=== PATIENT | male | born 1935 | race Caucasian/White ===

== ENCOUNTER → 2016-12-26 | Outpatient (REF) | payer MEDICARE ==
[2016-12-26 19:34] LABS: BASO % 0.4 % (0.0-1.0); EOS # 0.3 K/mm3 (0.0-0.50); EOS % 2.9 % (0.0-3.0); LARGE UNSTAINED CELL # 0.1 K/mm3 (0.0-0.4); LARGE UNSTAINED CELL % 0.8 % (0.0-4.0); LYMPH # 1.6 K/mm3 (1.5-4.5); LYMPH % 15.6 % (24.0-44.0); MEAN CORPUSCULAR HGB CONC 30.7 g/dl (32.0-36.5); MONO # 0.6 K/mm3 (0.0-0.8); MONO % 6.5 % (0.0-5.0); NEUTROPHILS # 7.1 K/mm3 (1.8-7.7); NEUTROPHILS % 73.9 % (36.0-66.0); PLATELET COUNT, AUTOMATED 465 k/mm3 (150-450); RED CELL DISTRIBUTION WIDTH 13.3 % (11.5-14.5); WHITE BLOOD COUNT 9.5 K/mm3 (4.0-10.0)
[2016-12-26 19:58] LABS: ERYTHROCYTE SEDIMENTATION RATE 63 mm/hr (0-20)
[2016-12-26 20:16] LABS: ALBUMIN 2.7 GM/DL (3.2-5.2); ALBUMIN/GLOBULIN RATIO 0.87 (1.00-1.93); BILIRUBIN,TOTAL 0.2 MG/DL (0.2-1.0); CALCIUM LEVEL 8.4 MG/DL (8.8-10.2); CREATININE FOR GFR 1.83 MG/DL (0.70-1.30); GLOMERULAR FILTRATION RATE 38.2 (>42); POTASSIUM SERUM 4.6 MEQ/L (3.5-5.1); TOTAL PROTEIN 5.8 GM/DL (6.4-8.2)
== END ==
LOC: M LAB REF 16:38
PROVIDERS: ATTEND Internal Medicine Infectious Disease
DX: I35.8 Other nonrheumatic aortic valve disorders (principal); R78.81 Bacteremia; L08.9 Local infection of the skin and subcutaneous tissue, unspecified; Z79.2 Long term (current) use of antibiotics; A49.01 Methicillin susceptible Staphylococcus aureus infection, unspecified site

== ENCOUNTER → 2016-12-29 | Outpatient (REF) | payer MEDICARE | LOC: M LABDRAW1 11:35 | PROVIDERS: ATTEND Physician Assistant Medical | DX: E11.9 Type 2 diabetes mellitus without complications (principal); E78.5 Hyperlipidemia, unspecified; I10 Essential (primary) hypertension ==

== ENCOUNTER → 2017-01-08 | Outpatient (REF) | payer MEDICARE ==
[2017-01-08 16:51] LABS: ALBUMIN 2.7 GM/DL (3.2-5.2); ALBUMIN/GLOBULIN RATIO 0.93 (1.00-1.93); BILIRUBIN,TOTAL 0.2 MG/DL (0.2-1.0); CREATININE FOR GFR 2.05 MG/DL (0.70-1.30); GLOMERULAR FILTRATION RATE 33.5 (>42); POTASSIUM SERUM 3.3 MEQ/L (3.5-5.1); TOTAL PROTEIN 5.6 GM/DL (6.4-8.2)
[2017-01-08 16:57] LABS: BASO % 0.2 % (0.0-1.0); EOS # 0.4 K/mm3 (0.0-0.50); EOS % 4.7 % (0.0-3.0); LARGE UNSTAINED CELL # 0.1 K/mm3 (0.0-0.4); LARGE UNSTAINED CELL % 1.1 % (0.0-4.0); LYMPH % 12.3 % (24.0-44.0); MEAN CORPUSCULAR HEMOGLOBIN 30.6 pg (27.0-33.0); MEAN CORPUSCULAR HGB CONC 31.3 g/dl (32.0-36.5); MEAN CORPUSCULAR VOLUME 97.7 fl (80.0-96.0); MONO # 0.6 K/mm3 (0.0-0.8); MONO % 8.3 % (0.0-5.0); NEUTROPHILS # 5.7 K/mm3 (1.8-7.7); NEUTROPHILS % 73.6 % (36.0-66.0); PLATELET COUNT, AUTOMATED 227 k/mm3 (150-450); RED CELL DISTRIBUTION WIDTH 13.5 % (11.5-14.5); WHITE BLOOD COUNT 7.8 K/mm3 (4.0-10.0)
[2017-01-08 17:43] LABS: ERYTHROCYTE SEDIMENTATION RATE 50 mm/hr (0-20)
== END ==
LOC: M LAB REF 16:23
PROVIDERS: ATTEND Internal Medicine Infectious Disease
DX: Z79.2 Long term (current) use of antibiotics (principal); A49.01 Methicillin susceptible Staphylococcus aureus infection, unspecified site

== ENCOUNTER → 2017-01-09 | Outpatient (REF) | payer MEDICARE | LOC: M LAB REF 14:19 | PROVIDERS: ATTEND Nurse Practitioner | DX: N18.4 Chronic kidney disease, stage 4 (severe) (principal); R79.89 Other specified abnormal findings of blood chemistry; Z79.2 Long term (current) use of antibiotics ==

== ENCOUNTER → 2017-01-15 | Outpatient (REF) | payer MEDICARE ==
[2017-01-15 18:01] LABS: BASO % 0.4 % (0.0-1.0); EOS # 0.4 K/mm3 (0.0-0.50); EOS % 4.5 % (0.0-3.0); LARGE UNSTAINED CELL # 0.2 K/mm3 (0.0-0.4); LARGE UNSTAINED CELL % 2.1 % (0.0-4.0); LYMPH # 1.5 K/mm3 (1.5-4.5); LYMPH % 17.5 % (24.0-44.0); MEAN CORPUSCULAR HEMOGLOBIN 30.5 pg (27.0-33.0); MEAN CORPUSCULAR HGB CONC 31.1 g/dl (32.0-36.5); MEAN CORPUSCULAR VOLUME 98.1 fl (80.0-96.0); MONO # 0.4 K/mm3 (0.0-0.8); MONO % 4.7 % (0.0-5.0); NEUTROPHILS # 6.2 K/mm3 (1.8-7.7); NEUTROPHILS % 70.7 % (36.0-66.0); PLATELET COUNT, AUTOMATED 219 k/mm3 (150-450); RED CELL DISTRIBUTION WIDTH 13.3 % (11.5-14.5); WHITE BLOOD COUNT 8.8 K/mm3 (4.0-10.0)
[2017-01-15 18:31] LABS: ALBUMIN 3.2 GM/DL (3.2-5.2); ALBUMIN/GLOBULIN RATIO 0.97 (1.00-1.93); BILIRUBIN,TOTAL 0.2 MG/DL (0.2-1.0); CALCIUM LEVEL 7.8 MG/DL (8.8-10.2); CREATININE FOR GFR 1.99 MG/DL (0.70-1.30); GLOMERULAR FILTRATION RATE 34.7 (>42); POTASSIUM SERUM 4.1 MEQ/L (3.5-5.1); TOTAL PROTEIN 6.5 GM/DL (6.4-8.2)
[2017-01-15 21:16] LABS: ERYTHROCYTE SEDIMENTATION RATE 37 mm/hr (0-20)
== END ==
LOC: M LAB REF 16:45
PROVIDERS: ATTEND Internal Medicine Infectious Disease
DX: A49.01 Methicillin susceptible Staphylococcus aureus infection, unspecified site (principal); R78.81 Bacteremia; Z79.2 Long term (current) use of antibiotics; L08.9 Local infection of the skin and subcutaneous tissue, unspecified; I35.8 Other nonrheumatic aortic valve disorders

== ENCOUNTER → 2017-01-22 | Outpatient (REF) | payer MEDICARE ==
[2017-01-22 19:05] LABS: ALBUMIN 3.2 GM/DL (3.2-5.2); ALBUMIN/GLOBULIN RATIO 1.07 (1.00-1.93); BILIRUBIN,TOTAL 0.2 MG/DL (0.2-1.0); CREATININE FOR GFR 1.98 MG/DL (0.70-1.30); GLOMERULAR FILTRATION RATE 34.9 (>42); TOTAL PROTEIN 6.2 GM/DL (6.4-8.2)
[2017-01-22 20:07] LABS: BASO % 0.7 % (0.0-1.0); EOS # 0.4 K/mm3 (0.0-0.50); EOS % 5.6 % (0.0-3.0); LARGE UNSTAINED CELL # 0.1 K/mm3 (0.0-0.4); LARGE UNSTAINED CELL % 1.2 % (0.0-4.0); LYMPH # 1.5 K/mm3 (1.5-4.5); LYMPH % 20.8 % (24.0-44.0); MEAN CORPUSCULAR HEMOGLOBIN 31.1 pg (27.0-33.0); MEAN CORPUSCULAR HGB CONC 32.2 g/dl (32.0-36.5); MEAN CORPUSCULAR VOLUME 96.6 fl (80.0-96.0); MONO # 0.5 K/mm3 (0.0-0.8); MONO % 7.6 % (0.0-5.0); NEUTROPHILS # 4.4 K/mm3 (1.8-7.7); NEUTROPHILS % 64.2 % (36.0-66.0); PLATELET COUNT, AUTOMATED 226 k/mm3 (150-450); RED CELL DISTRIBUTION WIDTH 13.3 % (11.5-14.5); WHITE BLOOD COUNT 6.9 K/mm3 (4.0-10.0)
[2017-01-22 21:49] LABS: ERYTHROCYTE SEDIMENTATION RATE 30 mm/hr (0-20)
== END ==
LOC: M LAB REF 16:31
PROVIDERS: ATTEND Internal Medicine Infectious Disease
DX: A41.01 Sepsis due to Methicillin susceptible Staphylococcus aureus (principal); I35.8 Other nonrheumatic aortic valve disorders; Z79.2 Long term (current) use of antibiotics; L08.9 Local infection of the skin and subcutaneous tissue, unspecified

== ENCOUNTER → 2017-01-26 | Outpatient (CLI) | payer MEDICARE ==
--- NOTE | 2017-01-26 20:12 | ECHO ---
DATE OF PROCEDURE: 01/26/2017 REFERRING PHYSICIAN: Shira De Souza MD PATIENT LOCATION: Outpatient DIAGNOSIS: Endocarditis. HEIGHT: 183 cm WEIGHT: 106 kg DIMENSIONS: IVS: 1.2 LV: 4.5 LVPW: 1.1 LA: 3.3 Aorta; 3.7 FINDINGS: The study is of difficult technical quality. Left ventricle is of normal size and systolic function with estimated ejection fraction (EF) approximately 60-65%. Borderline left ventricular hypertrophy (LVH) is noted. Right ventricle appears normal size, but it was poorly seen. Left atrium is at least mildly enlarged. Right atrium is probably normal but visualization was limited. Aortic valve is mildly sclerotic, but it is tricuspid and seems to have normal mobility. Mitral valve also appears to have mild degenerative abnormalities with thickening of anterior mitral leaflet. I do not appreciate any vegetation on either valve. Tricuspid and pulmonic valves were poorly visualized. No pericardial effusion is noted. Inferior vena cava was not seen. Aortic root is borderline enlarged. Aortic arch appears normal. Abdominal aorta was not visualized. Doppler interrogation reveals no aortic stenosis and trace insufficiency. There is mild mitral insufficiency. There is trace tricuspid insufficiency. Quality of tricuspid regurgitation (TR) jet though was not good and consequently I cannot reliably estimate pulmonary artery pressure. Pulmonic valve is also functionally competent based on limited views. Mitral inflow pattern and tissue Doppler imaging of mitral annulus revealed grade 1 diastolic dysfunction. E-prime velocity of medial septal annulus was 5.8 and lateral 7.3 cm/s. CONCLUSIONS: 1. Study is of fair technical quality. 2. Normal LV size with borderline LVH and preserved LV systolic function. Grade 1 diastolic dysfunction. 3. Mild degenerative abnormalities of aortic valve with trace insufficiency. 4. Mild degenerative abnormalities of mitral valve with mild insufficiency. 5. Poor visualization of tricuspid and pulmonic valves. 6. No vegetations were seen. 7. Unable to estimate central venous pressure and pulmonary artery pressure. Comments: SBE prophylaxis is recommended. MTDD
== END ==
LOC: M CARPUL 08:21
PROVIDERS: ATTEND Internal Medicine
DX: I35.8 Other nonrheumatic aortic valve disorders (principal); I70.0 Atherosclerosis of aorta

== ENCOUNTER → 2017-01-29 | Outpatient (REF) | payer MEDICARE ==
[2017-01-29 17:45] LABS: BASO % 0.5 % (0.0-1.0); EOS # 0.3 K/mm3 (0.0-0.50); EOS % 4.6 % (0.0-3.0); LARGE UNSTAINED CELL # 0.1 K/mm3 (0.0-0.4); LARGE UNSTAINED CELL % 2.1 % (0.0-4.0); LYMPH % 28.3 % (24.0-44.0); MEAN CORPUSCULAR HEMOGLOBIN 30.5 pg (27.0-33.0); MEAN CORPUSCULAR HGB CONC 31.6 g/dl (32.0-36.5); MEAN CORPUSCULAR VOLUME 96.7 fl (80.0-96.0); MONO # 0.5 K/mm3 (0.0-0.8); MONO % 6.8 % (0.0-5.0); NEUTROPHILS # 3.8 K/mm3 (1.8-7.7); NEUTROPHILS % 57.7 % (36.0-66.0); PLATELET COUNT, AUTOMATED 241 k/mm3 (150-450); RED CELL DISTRIBUTION WIDTH 13.2 % (11.5-14.5); WHITE BLOOD COUNT 6.6 K/mm3 (4.0-10.0)
[2017-01-29 18:07] LABS: ALBUMIN 3.3 GM/DL (3.2-5.2); ALBUMIN/GLOBULIN RATIO 1.03 (1.00-1.93); ALKALINE PHOSPHATASE 102 U/L (45-117); ALT/SGPT 37 U/L (12-78); ANION GAP 6 MEQ/L (8-16); AST/SGOT 29 U/L (15-37); BILIRUBIN,TOTAL 0.2 MG/DL (0.2-1.0); BLOOD UREA NITROGEN 44 MG/DL (7-18); CARBON DIOXIDE LEVEL 31 MEQ/L (21-32); CHLORIDE LEVEL 104 MEQ/L (98-107); CREATININE FOR GFR 2.57 MG/DL (0.70-1.30); GLOMERULAR FILTRATION RATE 25.8 (>42); GLUCOSE, FASTING 91 MG/DL (83-110); POTASSIUM SERUM 4.4 MEQ/L (3.5-5.1); SODIUM LEVEL 141 MEQ/L (136-145); TOTAL PROTEIN 6.5 GM/DL (6.4-8.2)
[2017-01-29 21:27] LABS: ERYTHROCYTE SEDIMENTATION RATE 33 mm/hr (0-20)
== END ==
LOC: M LAB REF 16:43
PROVIDERS: ATTEND Internal Medicine Infectious Disease
DX: A41.01 Sepsis due to Methicillin susceptible Staphylococcus aureus (principal)

== ENCOUNTER → 2017-01-30 | Outpatient (REF) | payer MEDICARE ==
[2017-01-30 18:20] LABS: ALBUMIN 3.4 GM/DL (3.2-5.2); ALBUMIN/GLOBULIN RATIO 1.13 (1.00-1.93); BILIRUBIN,TOTAL 0.2 MG/DL (0.2-1.0); CALCIUM LEVEL 7.8 MG/DL (8.8-10.2); CREATININE FOR GFR 2.22 MG/DL (0.70-1.30); GLOMERULAR FILTRATION RATE 30.6 (>42); POTASSIUM SERUM 4.4 MEQ/L (3.5-5.1); TOTAL PROTEIN 6.4 GM/DL (6.4-8.2)
[2017-01-30 18:51] LABS: BASO % 0.4 % (0.0-1.0); EOS # 0.3 K/mm3 (0.0-0.50); EOS % 5.4 % (0.0-3.0); LARGE UNSTAINED CELL # 0.1 K/mm3 (0.0-0.4); LARGE UNSTAINED CELL % 1.6 % (0.0-4.0); LYMPH # 1.7 K/mm3 (1.5-4.5); LYMPH % 27.2 % (24.0-44.0); MEAN CORPUSCULAR HEMOGLOBIN 30.2 pg (27.0-33.0); MEAN CORPUSCULAR HGB CONC 31.1 g/dl (32.0-36.5); MONO # 0.3 K/mm3 (0.0-0.8); NEUTROPHILS # 3.9 K/mm3 (1.8-7.7); NEUTROPHILS % 60.5 % (36.0-66.0); PLATELET COUNT, AUTOMATED 251 k/mm3 (150-450); RED CELL DISTRIBUTION WIDTH 13.1 % (11.5-14.5); WHITE BLOOD COUNT 6.4 K/mm3 (4.0-10.0)
== END ==
LOC: M LAB REF 17:08
PROVIDERS: ATTEND Internal Medicine Infectious Disease
DX: A49.01 Methicillin susceptible Staphylococcus aureus infection, unspecified site (principal); I35.8 Other nonrheumatic aortic valve disorders; Z79.2 Long term (current) use of antibiotics; R78.81 Bacteremia; R79.89 Other specified abnormal findings of blood chemistry

== ENCOUNTER → 2017-04-27 | Outpatient (REF) | payer MEDICARE ==
[2017-04-27 11:24] LABS: ALBUMIN 4.1 GM/DL (3.2-5.2); ALBUMIN/GLOBULIN RATIO 1.28 (1.00-1.93); BILIRUBIN,TOTAL 0.4 MG/DL (0.2-1.0); CALCIUM LEVEL 9.1 MG/DL (8.8-10.2); CREATININE FOR GFR 3.39 MG/DL (0.70-1.30); GLOMERULAR FILTRATION RATE 18.8 (>42); POTASSIUM SERUM 4.9 MEQ/L (3.5-5.1); TOTAL PROTEIN 7.3 GM/DL (6.4-8.2); URIC ACID 5.9 MG/DL (3.5-7.2)
== END ==
LOC: M LABDRAW1 10:24
PROVIDERS: ATTEND Emergency Medicine
DX: M10.9 Gout, unspecified (principal); E11.9 Type 2 diabetes mellitus without complications; I10 Essential (primary) hypertension

== ENCOUNTER 2017-08-17 09:40 | Observation (INO) | payer MEDICARE ==
[~2017-08-17] VITALS: Ht 182.9 cm; Wt 105.9 kg
[2017-08-17] MEDS: D5W/0.45% SODIUM CHLORIDE 1,000 ML IV SCH ×2 (10:06→21:24)
[2017-08-17 10:09] LABS: VENOUS BASE EXCESS 0.1 (-2.0-2.0); VENOUS O2 SATURATION 70.1 % (60.0-80.0); VENOUS PARTIAL PRESSURE CO2 52.8 mmHg (38.0-50.0); VENOUS PARTIAL PRESSURE O2 37.4 mmHg (30.0-50.0); VENOUS TOTAL CO2 28.5 MEQ/L (24.0-28.0)
[2017-08-17 10:10] LABS: BASO % 0.4 % (0.0-1.0); EOS # 0.2 10^3/uL (0.0-0.50); EOS % 3.4 % (0.0-3.0); IMMATURE GRANULOCYTE % 0.6 % (0-0); LYMPH # 1.5 10^3/uL (1.5-4.5); MEAN CORPUSCULAR HEMOGLOBIN 31.6 pg (27.0-33.0); MEAN CORPUSCULAR VOLUME 95.7 fl (80.0-96.0); MONO # 0.4 10^3/uL (0.0-0.8); MONO % 6.8 % (0.0-5.0); NEUTROPHILS # 3.2 10^3/uL (1.8-7.7); NEUTROPHILS % 60.8 % (36.0-66.0); PLATELET COUNT, AUTOMATED 162 10^3/uL (150-450); RED CELL DISTRIBUTION WIDTH 11.9 % (11.5-14.5); WHITE BLOOD COUNT 5.3 10^3/uL (4.0-10.0)
[2017-08-17] MEDS ORDERED: FURO80TA2 PO (10:23)
[2017-08-17] MEDS ORDERED: MAGN250T7 PO (10:23)
[2017-08-17] MEDS ORDERED: ASPI1TAB PO (10:23)
[2017-08-17] MEDS ORDERED: ACET1TAB17 PO (10:23)
[2017-08-17] MEDS ORDERED: ULOR80TA PO (10:23)
[2017-08-17] MEDS ORDERED: ESCI10TA2 PO (10:23)
[2017-08-17] MEDS ORDERED: CALCTAB74 PO (10:23)
[2017-08-17] MEDS ORDERED: REQU1TAB15 PO (10:23)
[2017-08-17] MEDS ORDERED: GLIP1TAB51 PO (10:23)
[2017-08-17] MEDS ORDERED: OMEP40CA2 PO (10:23)
[2017-08-17] MEDS ORDERED: TYLE1TAB5 PO (10:23)
[2017-08-17] MEDS ORDERED: FLOM5CAP PO (10:23)
[2017-08-17] MEDS ORDERED: CHARCOAL ACTIVATED LIQUID 25 GM/120 ML BTL PO ONE (10:30)
--- NOTE | 2017-08-17 10:36 | REP ---
PORTABLE CHEST: SINGLE VIEW. HISTORY: Drug overdose. COMPARISON STUDY: June 15, 2011 FINDINGS: The lungs are symmetrically aerated and free of infiltrate. EKG electrodes are seen. There is some pleural calcification plaquing noted bilaterally, unchanged. Heart is not enlarged. The pleural angles are sharp. Pulmonary vasculature is not increased. IMPRESSION: Calcific pleural plaquing. No active disease. Signed by Juan Luis Martinez MD 08/17/2017 03:50 P
[2017-08-17 10:52] LABS: ALBUMIN 3.5 GM/DL (3.2-5.2); ALKALINE PHOSPHATASE 53 U/L (45-117); ALT/SGPT 25 U/L (12-78); ANION GAP 8 MEQ/L (8-16); AST/SGOT 17 U/L (15-37); BILIRUBIN,DIRECT 0.1 MG/DL (0.0-0.2); BILIRUBIN,TOTAL 0.3 MG/DL (0.2-1.0); BLOOD UREA NITROGEN 56 MG/DL (7-18); CALCIUM LEVEL 8.4 MG/DL (8.8-10.2); CARBON DIOXIDE LEVEL 28 MEQ/L (21-32); CHLORIDE LEVEL 103 MEQ/L (98-107); CREATININE FOR GFR 2.37 MG/DL (0.70-1.30); GLOMERULAR FILTRATION RATE 28.3 (>42); GLUCOSE, FASTING 133 MG/DL (83-110); MAGNESIUM LEVEL 1.8 MG/DL (1.8-2.4); POTASSIUM SERUM 4.6 MEQ/L (3.5-5.1); SODIUM LEVEL 139 MEQ/L (136-145); TOTAL PROTEIN 6.2 GM/DL (6.4-8.2)
[2017-08-17] MEDS ORDERED: OMEP20CA3 PO (10:53)
[2017-08-17] MEDS ORDERED: SPIR25TA2 PO (10:53)
[2017-08-17 11:18] LABS: METHADONE URINE NEGATIVE (NEGATIVE)
[2017-08-17] MEDS ORDERED: ONDANSETRON 4MG/2ML VIAL (J2405) IV PRN (11:45)
--- NOTE | 2017-08-17 11:55 | HPEPDOC ---
[facility] Medical History & Physical Date of Admission Aug 17, 2017 Attending Physician: NIKKIE GALLO MD History and Physical PRIMARY CARE PROVIDER: Cesar Merritt ATTENDING: Nikkie Gallo M.D. CHIEF COMPLAINT: Suicide attempt HISTORY OF PRESENT ILLNESS: This is a 81-year-old male with a past medical history of diabetes mellitus, hypertension, hyperlipidemia, chronic kidney disease with progression towards dialysis with a scheduled fistula placement on the , Alzheimer's presents with a suicide attempt. Patient states is been feeling depressed since October when his . He is was also told that he has progressive kidney failure and he'll be on dialysis soon for which she will have a fistula placed in the . He states been increasingly depressed and states he took 12 pills of glipizide today and attempt to commit suicide. Patient's blood sugars have been greater than 100 since presentation, ED had called [facility] recommendations 24-hour observation. Patient's currently on D5 fluids. The patient also had a suicide note. PAST MEDICAL HISTORY: As per HPI PAST SURGICAL HISTORY: States he does not have his list with him. SOCIAL HISTORY: Denies tobacco, alcohol, illicit drug use. FAMILY HISTORY: Noncontributory ALLERGIES: Please see below. REVIEW OF SYSTEMS: HEENT: Denies sore throat/headache CARDIOVASCULAR: Denies chest pain/palpitations RESPIRATORY: Denies shortness of breath/cough GASTROINTESTINAL: denies nausea/vomiting GENITOURINARY: Denies dysuria/urinary urgency. MUSCULOSKELETAL: Denies myalgias/arthralgias NEUROLOGICAL: Denies any focal weakness HOME MEDICATIONS: Please see below. PHYSICAL EXAMINATION: Vitals: (see below) General: No acute distress, laying comfortably in bed. HEENT: Moist mucous membranes. Neck: No JVD or lymphadenopathy Cardiac: RRR, No murmurs Pulm: Clear to auscultation b/l. No wheezing, rhonchi Abd: NT/ND + BS. Obese Ext: No edema or cyanosis Neuro: Alert and oriented 3. Depressed. Suicidal. LABORATORY DATA: See below. IMAGING: MICROBIOLOGY: Please see below. ASSESSMENT/PLAN: 1. Suicide attempt- overdose with glipizide- we'll continue D5 fluids, and we' ll check blood sugars every 2 hours. One-to-one observation. We will consult psychiatry for inpatient admission and the next 24 hours. 2. Diabetes mellitus- hold glipizide. We'll check the patient's blood sugars every 2 hours. 3. Hypertension- controlled continue home meds 4. Chronic kidney disease with progression to end-stage and dialysis - will need outpatient follow-up. Scheduled fistula on the . 5. Hyperlipidemia- continue statin DVT prophylaxis- heparin subcutaneous Vital Signs Vital Signs Date Time Temp Pulse Resp B/P (MAP) Pulse Ox O2 Delivery O2 Flow Rate FiO2 08/17/17 10:08 08/17/17 09:43 96.9 62 18 99 Room Air Laboratory Data Labs 24H Laboratory Tests 2 08/17/17 09:51: Immature Granulocyte % (Auto) 0.6H, White Blood Count 5.3, Red Blood Count 3.96L , Hemoglobin 12.5L, Hematocrit 37.9L, Mean Corpuscular Volume 95.7, Mean Corpuscular Hemoglobin 31.6, Mean Corpuscular Hemoglobin Concent 33.0, Red Cell Distribution Width 11.9, Platelet Count 162, Neutrophils (%) (Auto) 60.8, Lymphocytes (%) (Auto) 28.0, Monocytes (%) (Auto) 6.8H, Eosinophils (%) (Auto) 3.4H, Basophils (%) (Auto) 0.4, Neutrophils # (Auto) 3.2, Lymphocytes # (Auto) 1.5, Monocytes # (Auto) 0.4, Eosinophils # (Auto) 0.2, Basophils # (Auto) 0.0, Immature Granulocyte # (Auto) 0.0, Nucleated Red Blood Cells % (auto) 0.0, Blood Gas Bicarbonate Standard 24.0, Venous Blood pH 7.325L, Venous Blood Partial Pressure CO2 52.8H, Venous Blood Partial Pressure O2 37.4, Venous Blood Total Carbon Dioxide 28.5H, Venous Blood HCO3 26.9, Venous Blood Oxygen Saturation 70.1, Venous Blood Base Excess 0.1, Anion Gap 8, Glomerular Filtration Rate 28.3L, Calcium Level 8.4L, Magnesium Level 1.8, Aspartate Amino Transf (AST/SGOT) 17, Alanine Aminotransferase (ALT/SGPT) 25, Alkaline Phosphatase 53, Total Bilirubin 0.3, Direct Bilirubin 0.1, Total Creatine Kinase 51, Total Protein 6.2L, Albumin 3.5, Albumin/Globulin Ratio 1.30, Thyroid Stimulating Hormone (TSH) 2.340, Salicylates Level 1.8L, Urine Amphetamines Screen NEGATIVE, Urine Benzodiazepines Screen NEGATIVE, Urine Opiates Screen NEGATIVE, Urine Methadone Screen NEGATIVE, Acetaminophen Level < 2.0L, Urine Barbiturates Screen NEGATIVE, Urine Phencyclidine Screen NEGATIVE, Urine Cocaine Metabolite Screen NEGATIVE, Urine Cannabinoids Screen NEGATIVE, Ethyl Alcohol Level 0.004 08/17/17 09:53: Bedside Glucose (Misc Panel) 124H 08/17/17 10:52: Bedside Glucose (Misc Panel) 142H CBC/BMP Laboratory Tests 08/17/17 09:51 Red Blood Count 3.96 L, Mean Corpuscular Volume 95.7, Mean Corpuscular Hemoglobin 31.6, Mean Corpuscular Hemoglobin Concent 33.0, Red Cell Distribution Width 11.9, Neutrophils (%) (Auto) 60.8, Lymphocytes (%) (Auto) 28.0, Monocytes (%) (Auto) 6.8 H, Eosinophils (%) (Auto) 3.4 H, Basophils (%) ( Auto) 0.4, Neutrophils # (Auto) 3.2, Lymphocytes # (Auto) 1.5, Monocytes # (Auto ) 0.4, Eosinophils # (Auto) 0.2, Basophils # (Auto) 0.0 Home Medications Scheduled (Tylenol Pm Extra Strength 500-25 mg) 1 Tab Tab, 2 TAB PO QHS Acetaminophen (Acetaminophen) 325 Mg Tab, 1,000 MG PO DAILY Aspirin (Aspirin 81) 81 Mg Tab, 81 MG PO QHS Calcium/Vitamin D (Calcium 600+D 600-400 mg-Unit) 1 Tab Tab, 1 TAB PO BID Escitalopram Oxalate (Escitalopram Oxalate) 10 Mg Tab, 10 MG PO DAILY Febuxostat (Uloric) 80 Mg Tab, 80 MG PO DAILY Furosemide (Furosemide) 80 Mg Tab, 80 MG PO DAILY Glipizide (Glipizide ER) 10 Mg Tab, 10 MG PO DAILY Magnesium (Magnesium) 250 Mg Tab, 250 MG PO DAILY Omeprazole (Omeprazole) 20 Mg Cap, 20 MG PO DAILY Ropinirole Hydrochloride (Requip) 0.5 Mg Tab, 1 MG PO DAILY Spironolactone (Spironolactone) 25 Mg Tab, 25 MG PO DAILY Tamsulosin Hydrochloride (Flomax) 0.4 Mg Cap, 0.4 MG PO DAILY Allergies Coded Allergies: Latex (Unverified Allergy, Mild, 02/14/13) Sitagliptin (Unverified Allergy, Unknown, PANCREATITIS, 08/17/17) NIKKIE GALLO MD Aug 17, 2017 11:55
[2017-08-17 20:36] VITALS: BP 150/76
[2017-08-17 23:48] VITALS: BP 132/60
[2017-08-18 05:33] VITALS: BP 142/70
--- NOTE | 2017-08-18 05:36 | ECGEPIP ---
Stationary ECG Study [facility] - ED Test Date: 2017-08-17 Pat Name: SOO CRAIG Department: Room: [place] [address] Gender: M Community Health Consultant: sherwin : 1935 Requested By: Francisco Cassidy Order Number: [id number] Reading MD: Francisco Alexis Measurements Intervals [place] Rate: 61 P: -48 WA: 161 QRS: 17 QRSD: 129 T: 44 QT: 435 QTc: 440 Interpretive Statements SINUS RHYTHM RIGHT BUNDLE BRANCH BLOCK NO PRIORS Electronically Signed On 08-18-2017 5:35:58 EDT by Francisco Alexis
[2017-08-18 05:40] LABS: MEAN CORPUSCULAR HGB CONC 31.9 g/dl (32.0-36.5); MEAN CORPUSCULAR VOLUME 97.1 fl (80.0-96.0); RED CELL DISTRIBUTION WIDTH 12.1 % (11.5-14.5); WHITE BLOOD COUNT 6.1 10^3/uL (4.0-10.0)
[2017-08-18 06:11] LABS: CALCIUM LEVEL 8.4 MG/DL (8.8-10.2); CREATININE FOR GFR 2.18 MG/DL (0.70-1.30); GLOMERULAR FILTRATION RATE 31.2 (>42)
[2017-08-18] MEDS: D5W/0.45% SODIUM CHLORIDE 1,000 ML IV SCH (06:42)
[2017-08-18 08:15] VITALS: BP 139/65
[2017-08-18] MEDS: ESCITALOPRAM OXALATE 10 MG TAB (LEXAPRO) PO SCH (11:11)
[2017-08-18] MEDS: rOPINIRole 1MG TAB PO SCH (11:11)
[2017-08-18] MEDS: OMEPRAZOLE 20 MG CAP PO SCH (11:11)
[2017-08-18] MEDS: FEBUXOSTAT 40 MG TABLET (ULORIC) PO SCH (11:11)
[2017-08-18] MEDS: SPIRONOLACTONE 25 MG TAB PO SCH (11:11)
[2017-08-18] MEDS: TAMSULOSIN 0.4 MG CAP PO SCH (11:12)
[2017-08-18] MEDS: FUROSEMIDE 80 MG TAB PO SCH (11:12)
[2017-08-18 12:00] VITALS: BP 138/68
--- NOTE | 2017-08-18 14:41 | IPNPDOC ---
Text Note Date of Service The patient was seen on 08/18/17. NOTE Subjective: Pt feels well. Denies any complaints. PHYSICAL EXAMINATION: Vitals: (see below) General: No acute distress, laying comfortably in bed. HEENT: Moist mucous membranes. Neck: No JVD or lymphadenopathy Cardiac: RRR, No murmurs Pulm: Clear to auscultation b/l. No wheezing, rhonchi Abd: NT/ND + BS. Obese Ext: No edema or cyanosis Neuro: Alert and oriented 3. Depressed. Suicidal. LABORATORY DATA: See below. IMAGING: MICROBIOLOGY: Please see below. ASSESSMENT/PLAN: 1. Suicide attempt- overdose with glipizide- s/p D5 fluids. One-to-one observation. We will consult psychiatry for inpatient admission in the next 24 hours. 2. Diabetes mellitus- hold glipizide. We'll check the patient's blood sugars every 4 hours. s/p D5 3. Hypertension- controlled continue home meds 4. Chronic kidney disease with progression to end-stage and dialysis - will need outpatient follow-up. Scheduled fistula on the . 5. Hyperlipidemia- continue statin DVT prophylaxis- heparin subcutaneous VS,Fishbone, I+O VS, Fishbone, I+O Laboratory Tests 08/18/17 05:25 Red Blood Count 3.84 L, Mean Corpuscular Volume 97.1 H, Mean Corpuscular Hemoglobin 31.0, Mean Corpuscular Hemoglobin Concent 31.9 L, Red Cell Distribution Width 12.1, Calcium Level 8.4 L Vital Signs Date Time Temp Pulse Resp B/P (MAP) Pulse Ox O2 Delivery O2 Flow Rate FiO2 08/18/17 12:00 97.5 54 20 138/68 (91) 99 Room Air I&O- Last 24 Hours up to 6 AM 08/19/17 06:00 Intake Total 960 ml Output Total 400 ml Balance 560 ml NIKKIE GALLO MD Aug 18, 2017 14:41
[2017-08-18 16:03] VITALS: BP 145/69
[2017-08-18 20:00] VITALS: BP 140/69
[2017-08-18] MEDS: ASPIRIN 81 MG ENTERIC TAB PO SCH (21:09)
--- NOTE | 2017-08-18 23:34 | ECGEPIP ---
Stationary ECG Study [facility] Test Date: 2017-08-18 Pat Name: SOO CRAIG Department: Room: [place] [address] Gender: M Insights Strategist: : 1935 Requested By: NIKKIE GALLO Order Number: [id number] Reading MD: Justyn Merritt Measurements Intervals [place] Rate: 57 P: 64 PA: 242 QRS: 12 QRSD: 135 T: 42 QT: 445 QTc: 433 Interpretive Statements SINUS BRADYCARDIA WITH FIRST DEGREE AV BLOCK RIGHT BUNDLE BRANCH BLOCK LAST TRACING ON 08/17/2017 AT 9:58:54, NO SIGNIFICANT CHANGES Electronically Signed On 08-18-2017 23:33:54 EDT by Justyn Merritt
[2017-08-19] VITALS: BP 118/65
[2017-08-19 04:00] VITALS: BP 131/74
[2017-08-19 05:40] LABS: MEAN CORPUSCULAR HEMOGLOBIN 31.5 pg (27.0-33.0); MEAN CORPUSCULAR HGB CONC 32.3 g/dl (32.0-36.5); MEAN CORPUSCULAR VOLUME 97.5 fl (80.0-96.0); RED CELL DISTRIBUTION WIDTH 12.1 % (11.5-14.5); WHITE BLOOD COUNT 7.3 10^3/uL (4.0-10.0)
[2017-08-19 05:58] LABS: CALCIUM LEVEL 8.8 MG/DL (8.8-10.2); CREATININE FOR GFR 2.16 MG/DL (0.70-1.30); GLOMERULAR FILTRATION RATE 31.6 (>42); POTASSIUM SERUM 4.2 MEQ/L (3.5-5.1)
[2017-08-19] MEDS: ESCITALOPRAM OXALATE 10 MG TAB (LEXAPRO) PO SCH (08:06)
[2017-08-19] MEDS: rOPINIRole 1MG TAB PO SCH (08:06)
[2017-08-19] MEDS: FEBUXOSTAT 40 MG TABLET (ULORIC) PO SCH (08:06)
[2017-08-19] MEDS: SPIRONOLACTONE 25 MG TAB PO SCH (08:06)
[2017-08-19] MEDS: FUROSEMIDE 80 MG TAB PO SCH (08:07)
[2017-08-19] MEDS: OMEPRAZOLE 20 MG CAP PO SCH (08:07)
[2017-08-19] MEDS: TAMSULOSIN 0.4 MG CAP PO SCH (08:07)
[2017-08-19 08:16] VITALS: BP 142/86
[2017-08-19] MEDS ORDERED: SLF 3 ML SYR IV PRN (10:00)
--- NOTE | 2017-08-19 10:26 | IPNPDOC ---
Text Note Date of Service The patient was seen on 08/19/17. NOTE Subjective: Pt feels well. Denies any complaints. PHYSICAL EXAMINATION: Vitals: (see below) General: No acute distress, laying comfortably in bed. HEENT: Moist mucous membranes. Neck: No JVD or lymphadenopathy Cardiac: RRR, No murmurs Pulm: Clear to auscultation b/l. No wheezing, rhonchi Abd: NT/ND + BS. Obese Ext: No edema or cyanosis Neuro: Alert and oriented 3. Depressed. Suicidal. LABORATORY DATA: See below. IMAGING: MICROBIOLOGY: Please see below. ASSESSMENT/PLAN: 1. Suicide attempt- overdose with glipizide- s/p D5 fluids. One-to-one observation. We will consult psychiatry for inpatient admission for bradycardia dressed. 2. Diabetes mellitus- hold glipizide. We'll check the patient's blood sugars every 4 hours. s/p D5 3. Hypertension- controlled continue home meds 4. Chronic kidney disease with progression to end-stage and dialysis - will need outpatient follow-up. Scheduled fistula on the . 5. Hyperlipidemia- continue statin 6. Bradycardia, asymptomatic. ? Heart Block. Cardio consulted. DVT prophylaxis- heparin subcutaneous VS,Fishbone, I+O VS, Fishbone, I+O Laboratory Tests 08/19/17 05:24 Red Blood Count 3.97 L, Mean Corpuscular Volume 97.5 H, Mean Corpuscular Hemoglobin 31.5, Mean Corpuscular Hemoglobin Concent 32.3, Red Cell Distribution Width 12.1, Calcium Level 8.8 Vital Signs Date Time Temp Pulse Resp B/P (MAP) Pulse Ox O2 Delivery O2 Flow Rate FiO2 08/19/17 08:16 97.3 70 20 142/86 (104) 97 Room Air I&O- Last 24 Hours up to 6 AM 08/20/17 06:00 Intake Total 480 ml Output Total 0 ml Balance 480 ml NIKKIE GALLO MD Aug 19, 2017 10:26
[2017-08-19 12:05] VITALS: BP 146/72
[2017-08-19] MEDS: SLF 3 ML SYR IV SCH ×2 (12:42→21:18)
[2017-08-19 16:48] VITALS: BP 140/72
[2017-08-19 20:00] VITALS: BP 131/76
[2017-08-19] MEDS: ASPIRIN 81 MG ENTERIC TAB PO SCH (20:36)
[2017-08-20] VITALS: BP 116/59
[2017-08-20 04:00] VITALS: BP 120/58
[2017-08-20] MEDS: SLF 3 ML SYR IV SCH ×2 (05:04→12:10)
[2017-08-20 05:20] LABS: MEAN CORPUSCULAR HGB CONC 31.8 g/dl (32.0-36.5); MEAN CORPUSCULAR VOLUME 97.7 fl (80.0-96.0); RED CELL DISTRIBUTION WIDTH 12.2 % (11.5-14.5); WHITE BLOOD COUNT 7.5 10^3/uL (4.0-10.0)
[2017-08-20 05:45] LABS: CALCIUM LEVEL 8.8 MG/DL (8.8-10.2); CREATININE FOR GFR 2.31 MG/DL (0.70-1.30); GLOMERULAR FILTRATION RATE 29.2 (>42); POTASSIUM SERUM 4.2 MEQ/L (3.5-5.1)
--- NOTE | 2017-08-20 07:08 | CR ---
DATE OF CONSULTATION: 08/19/2017 REASON FOR CONSULTATION: Abnormal EKG. HISTORY OF PRESENT ILLNESS: 81-year-old male well known by the office and usually sees Dr. Rocha. He has been doing well from a cardiac point of view. He does follow with Dr. Scott's office for his chronic kidney disease and according to the chart on the patient, he is getting closer to start diuresis. A few months ago, he had lost his from renal cell carcinoma and he has been depressed. For this reason, he had attitude to kill himself by ingesting 12 glipizide pills of 10 mg each. He also had a suicide note. He was admitted for further management and monitoring. When he arrived at the hospital , his blood sugar was normal. While on telemetry, he was found to have findings consistent with heart block and cardiology consultation was called. When I saw Mr. Kyle Silva, he was sitting up in bed in no acute distress and some family members were at bedside. He denies any chest pain, shortness of breath or palpitations. He denies any dizziness, syncope or near syncope. He has no pedal edema. He has no focal manifestations. He denies any tic bite. He has no nausea, vomiting, diarrhea, melena, or hematemesis. He denies any cough or hemoptysis. There is no active swelling or redness of the joints. He has a past medical history positive for hypertension, hyperlipidemia, diabetes mellitus, and Alzheimer's disease without dementia, benign prostatic hypertrophy (BPH), restless leg syndrome, anxiety, depression and chronic kidney disease. He denies any stroke, myocardial infarction, significant valvular heart disease, cardiomyopathy, CVA, atrial fibrillation, sudden cardiac . He denies thyroid disease or liver disease. MEDICATIONS: - glipizide 10 mg by mouth daily - tamsulosin 0.4 mg by mouth daily - Lasix 80 mg by mouth daily - escitalopram 10 mg by mouth daily - ropinirole 1 mg by mouth daily - Uloric 80 mg by mouth daily - aspirin 81 mg by mouth daily - calcium with vitamin D - Tylenol 1000 mg by mouth daily - magnesium 250 mg by mouth daily - omeprazole 20 mg by mouth daily - spironolactone 25 mg by mouth daily Past surgical history is positive for surgery of the knees, gallbladder and colon resection, lithotripsy for gallstones, tonsillectomy. Family history is noncontributory. Social History: The patient is now . He does not smoke or abuse drugs. There is no report of EtOH abuse. Allergies: He developed side effects to Januvia in the past, pancreatitis. Review of Systems: Unavailable at this present time. Physical Examination: The patient is alert and oriented, in no acute distress. His vital signs when I saw him included blood pressure 146/72 with a pulse of 62 , respirations 18, and his maximum temperature was 97.4 degrees Fahrenheit with an oxygen saturation of 98% on room air. Examination of the head is normocephalic, atraumatic. Neck is supple. No jugular venous distention or carotid bruits. The lungs are clear bilaterally on auscultation without any wheezing or crackles. The heart examination is normal S1, S2, without gallops. The PMI is not displaced. There is no rub. I could not appreciate any murmurs. Abdomen is soft. Nontender. Extremities had no pedal edema. Neurological examination is negative for focal deficit. Labs: CBC done today revealed a WBC of 7.3, hemoglobin 12.5, hematocrit 38.7 and platelets 149,000. BMP done today revealed a sodium of 143, potassium 4.2, chloride 111, CO2 25, BUN 50, creatinine 2.16, GFR 31.6 and glucose 112. Serum calcium is 8.8. Fasting glucose on admission was 133. BUN and creatinine were 56 and 2.37. Serum magnesium on admission was 1.8. Liver enzymes on admission included a total bilirubin of 0.3, direct bilirubin of 0.1, AST 17, ALT 25, alkaline phosphatase 53, total protein 6.2, albumin 3.5. TSH on admission was 2.3. VBG revealed a pH of 7.32, pCO2 52.8, pO2 37.4 and total bicarbonate of 28.5. Chest x-ray on admission revealed calcified pleural plaques, otherwise unremarkable. No cardiomegaly. No manifestation of heart failure. Electrocardiogram on admission on 08/17/2017 at 9:54 revealed normal sinus rhythm at 61 beats per minute and underlying right bundle branch block. No prior at that time for comparison. Electrocardiogram on 08/18/2017 revealed sinus bradycardia, mild, with first degree AV block and right bundle branch block. Telemetry strips are reviewed and revealed normal sinus rhythm with first degree AV block, episode of Mobitz I second degree AV block, but no obvious manifestation of Mobitz II second degree block or complete heart block noted. There was some unconnected PACs. Impression: 1. Abnormal electrocardiogram on telemetry strips consistent with first degree AV block and right bundle branch block, Mobitz I second degree AV block. The patient is asymptomatic. He is not on any AV blocking agent at this present time and he can be monitored. I have sent Lyme titers for him and then further recommendation will be given. At this present time, there is no need for permanent pacemaker implantation and this was discussed with him as well as his family and the hospitalist covering. I will continue to monitor him along with you while in the hospital and Dr. Rocha will be seeing him in the morning, 08/20/2017. 2. Status post suicidal attempt using glipizide, stable. He is being monitored. 3. History of hypertension. 4. Hyperlipidemia. 5. Diabetes mellitus. 6. Chronic kidney disease. 7. History of anxiety and depression. 8. dementia/Alzheimer's disease. 9. Restless leg syndrome. It was a pleasure to participate in the care of Mr. Kyle Silva for his underlying cardiac condition. Once again, he appears to be stable and there is no indication for permanent pacemaker implantation. Will continue to monitor him along with you. Please do not hesitate to call if any questions or any changes in his condition. SCOTTY
[2017-08-20 07:37] VITALS: BP 139/70
[2017-08-20] MEDS: FEBUXOSTAT 40 MG TABLET (ULORIC) PO SCH (08:04)
[2017-08-20] MEDS: OMEPRAZOLE 20 MG CAP PO SCH (08:04)
[2017-08-20] MEDS: rOPINIRole 1MG TAB PO SCH (08:04)
[2017-08-20] MEDS: ESCITALOPRAM OXALATE 10 MG TAB (LEXAPRO) PO SCH (08:04)
[2017-08-20] MEDS: FUROSEMIDE 80 MG TAB PO SCH (08:04)
[2017-08-20] MEDS: TAMSULOSIN 0.4 MG CAP PO SCH (08:04)
[2017-08-20] MEDS: SPIRONOLACTONE 25 MG TAB PO SCH (08:04)
--- NOTE | 2017-08-20 08:15 | IPN ---
DATE: 08/20/2017 Mr. Silva is feeling better. He tells me that mentally he feels in a much better place. He is looking forward to hopefully move to live with his daughter close to [place]. He did not have any significant arrhythmias on telemetry overnight. He has some occasional PVCs. The slowest heart rate was in 50s. He has no cardiac complaints. Vital signs: Blood pressure 139/70, heart rate has been mostly in 50s and 60s in sinus rhythm with first-degree AV block. He is afebrile. Saturation 99% on room air. His fluid balance yesterday was about 1.5 liters negative. Documented weight is 105. He is alert and oriented and appropriate. He is eating breakfast of pancakes and hernandez. His jugular venous pulse (JVP) is not up. Lungs are clear. Heart: Exam reveals regular rhythm. I do not appreciate any gallop or rub. Abdomen is soft, nontender. There is no edema. LABORATORY: Hemoglobin 12.1, hematocrit 38.1 and platelet count 156,000. BMP: Potassium 4.2, BUN 60, creatinine 2.34, glucose 131 ASSESSMENT/PLAN: Mr. Silva is a 81-year-old man with renal insufficiency that is slowly progressive currently between stage III and IV presented after a suicidal attempt. Fortunately, no significant toxicologic effect seems to occur after ingestion of glipizide. From my perspective, he can be taken off telemetry and further management as per primary care and psychiatry. I think it is likely that if indeed he lives with his daughter he will be in a much better place. His struggled with renal cell carcinoma for many years and eventually a few months ago and he is now here alone. [facility]
[2017-08-20] MEDS ORDERED: INFLUENZA VIRUS VACCINE HIGH DOSE 0.5 ML SYRINGE (90662) IM ONE (09:00)
[2017-08-20 11:55] VITALS: BP 150/78
--- NOTE | 2017-08-20 15:35 | DS.PDOC ---
Discharge Summary General Date of Admission Aug 17, 2017 at 11:45 Date of Discharge 08/20/17 Attending Physician: NIKKIE GALLO MD Specialist/Consultants Involve: THEO HAYES MD Specialist/Consultants Involve Dr. Cobian Discharge Summary PROCEDURES PERFORMED DURING STAY: None. ADMITTING/DISCHARGE DIAGNOSES: 1. Overdose attempted suicide with sulfonyurea - evaluated by Dr. Cobian and cleared for discharge. 2. Type I Mobitz heart block, first-degree AV block, right bundle branch block evaluated by cardiology and cleared for discharge. 3. Hypertension 4. Diabetes mellitus 5. CK D stage III 6. Hyperlipidemia COMPLICATIONS/CHIEF COMPLAINT: Overdose HISTORY OF PRESENT ILLNESS/HOSPITAL COURSE: This is a 81-year-old male past history of diabetes, hypertension, CKD stage III who presents after his family noted that he had tried to commit suicide. Patient had taken 12 pills of sulfonyurea, and attempt to commit suicide. He also wrote a suicide note. Poison control was contacted with recommend images for placing the patient on D5 monitoring over the next 24 hours. The patient progressed well and did not have any hypoglycemic episodes. The patient was placed on telemetry was noted to have a first-degree AV block, second-degree AV block Mobitz type I, right bundle branch block and was consulted. Pt was asymptotic. Patient has been cleared for discharge. Pt was medically cleared, psych was consulted. Dr. Cobian evaluated patient and determined that the patient does not need inpatient psychiatry admission. She recommended the patient be discharged with his daughter. DISCHARGE MEDICATIONS: Please see below. ALLERGIES: Please see below. PHYSICAL EXAMINATION ON DISCHARGE: Vitals: (see below) General: No acute distress, laying comfortably in bed. HEENT: Moist mucous membranes. Neck: No JVD or lymphadenopathy Cardiac: RRR, No murmurs Pulm: Clear to auscultation b/l. No wheezing, rhonchi Abd: NT/ND + BS. Obese Ext: No edema or cyanosis Neuro: Alert and oriented 3. Not Suicidal. LABORATORY DATA: Please see below. IMAGING: PROGNOSIS: Fair ACTIVITY: As tolerated. DIET: Carbohydrate consistent DISCHARGE PLAN/DISPOSITION: Home with family. He will need to stay with his daughter. States he's moving into her house. DISCHARGE INSTRUCTIONS: 1. Follow-up with PCP in psychiatry in 1 week. DISCHARGE CONDITION: Stable. TIME SPENT ON DISCHARGE: Greater than 30 minutes. Vital Signs/I&Os Vital Signs Date Time Temp Pulse Resp B/P (MAP) Pulse Ox O2 Delivery O2 Flow Rate FiO2 08/20/17 11:55 97.3 58 18 150/78 (102) 98 Room Air I&O- Last 24 Hours up to 6 AM 08/21/17 06:00 Intake Total 480 ml Output Total 700 ml Balance -220 ml Laboratory Data Labs 24H Laboratory Tests 2 08/19/17 16:26: Bedside Glucose (Misc Panel) 149H 08/19/17 19:33: Bedside Glucose (Misc Panel) 157H 08/20/17 01:51: Bedside Glucose (Misc Panel) 141H 08/20/17 03:48: Bedside Glucose (Misc Panel) 116H 08/20/17 05:04: Anion Gap 6L, Glomerular Filtration Rate 29.2L, Blood Urea Nitrogen 60H, Creatinine 2.31H, Sodium Level 141, Potassium Level 4.2, Chloride Level 108H, Carbon Dioxide Level 27, Calcium Level 8.8 08/20/17 07:55: Bedside Glucose (Misc Panel) 132H 08/20/17 11:43: Bedside Glucose (Misc Panel) 140H CBC/BMP Laboratory Tests 08/20/17 05:04 Red Blood Count 3.90 L, Mean Corpuscular Volume 97.7 H, Mean Corpuscular Hemoglobin 31.0, Mean Corpuscular Hemoglobin Concent 31.8 L, Red Cell Distribution Width 12.2, Calcium Level 8.8 FSBS Laboratory Tests Test 08/19/17 16:26 08/19/17 19:33 08/20/17 01:51 08/20/17 03:48 Range/Units Bedside Glucose (Misc Panel) 149 157 141 116 83-110 MG/DL Test 08/20/17 07:55 08/20/17 11:43 Range/Units Bedside Glucose (Misc Panel) 132 140 83-110 MG/DL Discharge Medications Scheduled Aspirin (Aspirin 81) 81 Mg Tab, 81 MG PO QHS, (Reported) Calcium/Vitamin D (Calcium 600+D 600-400 mg-Unit) 1 Tab Tab, 1 TAB PO BID, ( Reported) Escitalopram Oxalate (Escitalopram Oxalate) 10 Mg Tab, 10 MG PO DAILY, (Reported ) Febuxostat (Uloric) 80 Mg Tab, 80 MG PO DAILY, (Reported) Furosemide (Furosemide) 80 Mg Tab, 80 MG PO DAILY, (Reported) Magnesium (Magnesium) 250 Mg Tab, 250 MG PO DAILY, (Reported) Omeprazole (Omeprazole) 20 Mg Cap, 20 MG PO DAILY, (Reported) Ropinirole Hydrochloride (Requip) 0.5 Mg Tab, 1 MG PO DAILY, (Reported) Spironolactone (Spironolactone) 25 Mg Tab, 25 MG PO DAILY, (Reported) Tamsulosin Hydrochloride (Flomax) 0.4 Mg Cap, 0.4 MG PO DAILY, (Reported) Allergies Coded Allergies: Sitagliptin (Unverified Allergy, Unknown, PANCREATITIS, 08/17/17) Latex (Verified Adverse Reaction, Intermediate, RASH, 08/17/17) NIKKIE GALLO MD Aug 20, 2017 15:35
--- NOTE | 2017-08-20 16:00 | MHIPNPDOC ---
[facility] Progress Note Progress Note DATE OF SERVICE: 08/20/17 HISTORY: : Dr. Junior called this editorial writer because he was concerned about patient' s mental status and patient's safety upon discharge because he attempted suicide by ingesting 12 pills of glipizide and he had left a suicide note. Today, 08/20/2017, patient was interviewed and he was very forthcoming and honest about his suicide attempt. He stated this was not an accidental overdose , he didn't intentionally because he has been feeling very sad since his last October. He reported that his 's illness once long devastating because she had cancer. He also stated that he feels lonely, his friends have and he spends long hours at home alone because he lives with his son but his son works approximately 12 hours a day and during all the time he stays home alone hit things and things about his 's and about the friends are gone. He also reported financial problems because he took a lot of money to cover his 's illness and for that reason he is thinking about moving with his daughter and his son who live in a [facility], but in [place], because he wants to sell the house that he owns in [place], because it will help him with his financial situation. The money that he has saved is on a help him until April 2018 but after that he will be in trouble. He says he has been taking antidepressants for more than a year, and antidepressant "that starts with an E", then he said it was escitalopram, 10 mg by mouth daily. He reported having trouble sleeping, having a good appetite, he has lost his ability to focus and concentrate long before his . His energy levels are low, he has lost interest in what he used to do for fun, like fishing and hunting, in fact he never went fishing this year. He denied suicidal ideation, in fact he said that now that he has done this (attempted suicide), he knows he won't do it again.This editorial writer discussed with him the possibility of coming to the inpatient mental health unit to adjust his medications and to make sure that he was safe in here and he gave it a thought but he said he needed to get things going at home, pack his belongings and go with his daughter to her house where he is going to be staying. He reported that he has an appointment to come back to the hospital on August 28 and his daughter will bring him over and after that he will go back to her home in [facility]. This editorial writer spoke with his daughter over the phone Mrs. Trena Conteh was able to verify this information, says she is staying with him and she will take him with her to live in her house. VITAL SIGNS: See below. NEW TEST RESULTS: [N/A CURRENT MEDICATIONS: See below. MENTAL STATUS EXAMINATION: Patient is a 81-year old male, who is alert, cooperative with interview, pleasant, with good eye contact and good rapport. Speech: Is coherent and goal-directed. Language skills are fair. Thought processes including: Intact. Thought content: Focused and packing his things, emptying his house and putting it for sale. He is excited about going to live with his daughter and his son is [facility]. Abstract reasoning, and computation: Not assessed at this time. Description of associations: Good. Description of abnormal or psychotic thoughts: He denies suicidal and homicidal ideation, denies thought delusions and denies auditory and visual hallucinations Judgment: Fair Insight: Fair. Orientation: Oriented 3. Recent and remote memory: Fair Attention span and concentration: Good. Language: Normal. Fund of knowledge: Adequate. Mood: Euthymic. Affect: Euthymic, mood congruent. DIAGNOSES: 1. Major depressive disorder, recurrent, moderate (patient doesn't have suicidal ideation or suicidal plans at this time). ASSESSMENT: Patient is very honest about his suicide attempt but I believe that he got scared after he didn't and he has plans for the future he is excited about going to live with his family, his son and his daughter. The fact that he has plans for the future and he is goal oriented and is very positive. If he won't have plans for the future then we will have to worry, because that would make more likely and use suicide attempt. His daughter is here and according to his sitter, she has being here every day, has been very involved in his treatment and she is willing to take him home with her. This is very good for the patient because he feels terribly lonely, he doesn't have living friends, he stated he only has one neighbor and they're not exactly friends. He lives with his son but his son remains out of the house the entire day and he has financial problems. He is looking forward to selling his house because that will help him with his financial strains, so, the patient is making associations , wants to solve his current situation, and is looking forward for a less complicated life. He will highly benefit from living with his children, her daughter has been told she should make sure not to have guns, knives or any kind of pills available to his father and she should take him to his regular doctor to see if it is possible to adjust his antidepressant or to change the antidepressant. I understand he is on 10 mg of escitalopram because he has end- stage renal disease, and all antidepressants should be given in smaller doses to elderly people who already decreased glomerular filtration rate and in his case they should be more careful. MANAGEMENT PLAN: Patient will be discharged to his daughter who has accepted to take care of him TIME SPENT: 25 minutes. Vital Signs Vital Signs Date Time Temp Pulse Resp B/P (MAP) Pulse Ox O2 Delivery O2 Flow Rate FiO2 08/20/17 11:55 97.3 58 18 150/78 (102) 98 Room Air Laboratory Data 24H Labs Laboratory Tests 2 08/19/17 16:26: Bedside Glucose (Misc Panel) 149H 08/19/17 19:33: Bedside Glucose (Misc Panel) 157H 08/20/17 01:51: Bedside Glucose (Misc Panel) 141H 08/20/17 03:48: Bedside Glucose (Misc Panel) 116H 08/20/17 05:04: Anion Gap 6L, Glomerular Filtration Rate 29.2L, Blood Urea Nitrogen 60H, Creatinine 2.31H, Sodium Level 141, Potassium Level 4.2, Chloride Level 108H, Carbon Dioxide Level 27, Calcium Level 8.8 08/20/17 07:55: Bedside Glucose (Misc Panel) 132H 08/20/17 11:43: Bedside Glucose (Misc Panel) 140H CBC/BMP Laboratory Tests 08/20/17 05:04 Red Blood Count 3.90 L, Mean Corpuscular Volume 97.7 H, Mean Corpuscular Hemoglobin 31.0, Mean Corpuscular Hemoglobin Concent 31.8 L, Red Cell Distribution Width 12.2, Calcium Level 8.8 Current Medications Current Medications Aspirin (Ecotrin) 81 mg QHS PO Last administered on 08/19/17t 20:36; Start 08/18/17 at 21:00; Stop 09/17/17 at 20:59 Dextrose/Sodium Chloride 1,000 ml @ 100 mls/hr Q10H IV Last administered on 06:42; Start 08/17/17 at 10:00; Stop 08/18/17 at 10:50; Status DC Escitalopram Oxalate (Lexapro) 10 mg DAILY PO Last administered on 08/20/17 08 :04; Start 08/18/17 at 09:00; Stop 09/17/17 at 08:59 Febuxostat (Uloric) 80 mg DAILY PO Last administered on 08/20/17 08:04; Start 08/18/17 at 09:00; Stop 09/17/17 at 08:59 Furosemide (Lasix) 80 mg DAILY PO Last administered on 08/20/17 08:04; Start 08/18/17 at 09:00; Stop 09/17/17 at 08:59 Home Med (Med Rec Complete!) ASDIRECTED XX ; Start 08/17/17 at 11:00; Stop 08/17/17 at 11:00; Status DC Omeprazole (PriLOSEC) 20 mg DAILY PO Last administered on 08/20/17 08:04; Start 08/18/17 at 09:00; Stop 09/17/17 at 08:59 Ondansetron HCl (ZOFRAN INJection) 4 mg Q6HP PRN IV NAUSEA OR VOMITING; Start 08/17/17 at 11:45; Stop 09/16/17 at 11:44 Ropinirole HCl (Requip) 1 mg DAILY PO Last administered on 08/20/17 08:04; Start 08/18/17 at 09:00; Stop 09/17/17 at 08:59 Sodium Chloride (Saline Lock Flush) 2 ml ASDIRECTED PRN IV SEE LABEL COMMENTS; Start 08/19/17 at 10:00; Stop 09/18/17 at 09:59 Sodium Chloride (Saline Lock Flush) 2 ml SLF IV Last administered on 08/20/17 12:10; Start 08/19/17 at 14:00; Stop 09/18/17 at 13:59 Spironolactone (Aldactone) 25 mg DAILY PO Last administered on 08/20/17 08:04 ; Start 08/18/17 at 09:00; Stop 09/17/17 at 08:59 Tamsulosin HCl (Flomax) 0.4 mg DAILY PO Last administered on 08/20/17t 08:04; Start 08/18/17 at 09:00; Stop 09/17/17 at 08:59 Allergies Coded Allergies: Sitagliptin (Unverified Allergy, Unknown, PANCREATITIS, 08/17/17) Latex (Verified Adverse Reaction, Intermediate, RASH, 08/17/17) ANGELIA MCCLAIN MD Aug 20, 2017 16:00
[2017-08-22 00:20] LABS: Lyme Disease IgG/IgM Antibodie <0.91 ISR (0.00-0.90); Lyme Disease IgM Ab Quantitati <0.80 index (0.00-0.79)
[2017-08-24] MEDS ORDERED: GLIP1TAB51 PO (08:48)
== END 2017-08-20 15:50 | disposition home or self-care (01) ==
LOC: EDBD 09:40 → M ED 09:40 → M ED INP 11:45 → M PCU 16:49
PROVIDERS: ADMIT Internal Medicine; ATTEND Internal Medicine
DX: T38.3X2A Poisoning by insulin and oral hypoglycemic [antidiabetic] drugs, intentional self-harm, initial encounter (principal); T14.91XA Suicide attempt, initial encounter; I44.2 Atrioventricular block, complete; N18.9 Chronic kidney disease, unspecified; F33.1 Major depressive disorder, recurrent, moderate; I12.9 Hypertensive chronic kidney disease with stage 1 through stage 4 chronic kidney disease, or unspecified chronic kidney disease; E11.9 Type 2 diabetes mellitus without complications; E78.4 Other hyperlipidemia; Z79.82 Long term (current) use of aspirin; Z79.899 Other long term (current) drug therapy; Z91.040 Latex allergy status; G30.9 Alzheimer's disease, unspecified; Y92.019 Unspecified place in single-family (private) house as the place of occurrence of the external cause
CPT/HCPCS: 36415; 71010; 80048; 80076; 80307; 82550; 82803; 83036; 83735; 84443; 85025; 85027; 86617; 90662; 93005; 93041; 99285; G0008; G0378; G0480